=== PATIENT | female | born 2000 | race Two or more races ===

== ENCOUNTER 2018-11-20 21:59 | Emergency (ER) | payer MEDICAID ==
[~2018-11-20] VITALS: Ht 160 cm; Wt 56.7 kg
[2018-11-20 22:17] VITALS: BP 122/73
== END 2018-11-21 01:05 | disposition home or self-care (01) ==
LOC: EDBD 21:59 → ER 22:06
DX: S83.92XA Sprain of unspecified site of left knee, initial encounter (principal); V43.62XA Car passenger injured in collision with other type car in traffic accident, initial encounter; Y93.89 Activity, other specified; Y92.488 Other paved roadways as the place of occurrence of the external cause; Y99.8 Other external cause status
CPT/HCPCS: 73590